=== PATIENT | male | born 1980 | race Hispanic/Latino ===

== ENCOUNTER 2016-11-24 01:45 | Emergency (ER) | payer BC, OTHER ==
[2016-11-24] MEDS ORDERED: Ibuprofen 400 MG TAB ONE (03:10)
== END 2016-11-24 03:14 | disposition home or self-care (01) ==
LOC: ER 01:45
DX: S62.663A Nondisplaced fracture of distal phalanx of left middle finger, initial encounter for closed fracture (principal); W31.89XA Contact with other specified machinery, initial encounter; F17.210 Nicotine dependence, cigarettes, uncomplicated